=== PATIENT | female | born 1955 | race Caucasian/White ===

== ENCOUNTER 2016-07-01 16:06 | Emergency (ER) | payer OTHER ==
[~2016-07-01] VITALS: Ht 160 cm; Wt 86.8 kg
[~2016-07-01 16:06] MED LIST: ANTIVERT25 MG PO; NAPROSYN500 MG PO; VICODIN 5-3001 EACH PO
[2016-07-01] MEDS ORDERED: DICLOFENAC SOD100 MG PO (16:30)
[2016-07-01 17:35] LABS: ADD MIUA? YES; BILIRUBIN NEGATIVE; BLOOD SMALL; COLOR YELLOW ((YELLOW)); GLUCOSE (STRIP) NEGATIVE; KETONES 5; LEUKOCYTES TRACE; NITRITE NEGATIVE; PROTEIN (STRIP) NEGATIVE; SPECIFIC GRAVITY 1.015 (1.000-1.030); UROBILINOGEN 0.2 MG/DL (0.2-1.0)
[2016-07-01 17:40] VITALS: BP 131/96
[2016-07-01 17:50] LABS: BACTERIA NONE SEEN /HPF; EPITHELIAL CELLS RARE /HPF; MUCUS TRACE /LPF; RED BLOOD CELLS NONE SEEN /HPF (0-5); UCUL ADDED? NO; WHITE BLOOD CELLS 0-5 /HPF (0-5)
[2016-07-01 18:25] LABS: HEMATOCRIT 36.8 % (36.0-46.0); MCH 29.3 PG (29.0-34.0); MCHC 31.5 G/DL (30.0-36.0); MCV 92.9 FL (83-99); PLATELET COUNT 255 K/uL (156-360); RBC DIS.WIDTH-CV 13.9 % (11.8-14.6); RBC DIS.WIDTH-SD 47.6 % (39-53); RED BLOOD COUNT 3.96 M/uL (3.80-5.20); WHITE BLOOD COUNT 7.3 K/uL (4.1-10.2)
[2016-07-01 18:33] LABS: CHLORIDE 107 mEq/L (99-109); POTASSIUM 3.9 mEq/L (3.7-5.4); SODIUM 139 mEq/L (136-147)
[2016-07-01 18:34] LABS: GLUCOSE 100 mg/dL (70-99)
[2016-07-01 18:36] LABS: ANION GAP 9 MEQ/L (2-14)
[2016-07-01 18:38] LABS: GFR ESTIMATE (CALCULATED) > 59 mL/min/
[2016-07-01 18:39] LABS: UREA NITROGEN (BUN) 17 mg/dL (9-23)
[2016-07-01] MEDS ORDERED: VALIUM5 MG PO (18:56)
[2016-07-01] MEDS ORDERED: TRAMADOL HCL50 MG PO (18:56)
== END 2016-07-01 19:26 | disposition home or self-care (01) ==
LOC: EME 16:06
PROVIDERS: Physician Assistant
DX: S20.91XA Abrasion of unspecified parts of thorax, initial encounter (principal); M62.830 Muscle spasm of back; W08.XXXA Fall from other furniture, initial encounter; Y93.89 Activity, other specified; Y92.001 Dining room of unspecified non-institutional (private) residence as the place of occurrence of the external cause
CPT/HCPCS: 80048; 81003; 85027; 99281; 99284; J3010

== ENCOUNTER 2016-12-15 21:12 | Emergency (ER) | payer OTHER ==
[~2016-12-15] VITALS: Ht 160 cm; Wt 85.9 kg
[~2016-12-15 21:12] MED LIST changes: +DICLOFENAC SOD100 MG PO; +TRAMADOL HCL50 MG PO; +VALIUM5 MG PO
[2016-12-15 23:37] VITALS: BP 136/94
== END 2016-12-15 23:37 | disposition home or self-care (01) ==
LOC: RME 21:12 → EME 21:12 → RME 23:37
DX: S80.861A Insect bite (nonvenomous), right lower leg, initial encounter (principal); W57.XXXA Bitten or stung by nonvenomous insect and other nonvenomous arthropods, initial encounter
CPT/HCPCS: 99281; 99282

== ENCOUNTER 2017-08-13 16:56 | Observation (INO) | payer OTHER ==
[~2017-08-13] VITALS: Ht 160 cm; Wt 86.3 kg
[2017-08-13 18:22] LABS: PTT 28.6 SEC (25-37)
[2017-08-13 18:27] LABS: ALBUMIN 4.1 g/dL (3.2-4.8); CHLORIDE 108 mEq/L (99-109); POTASSIUM 3.8 mEq/L (3.7-5.4); SODIUM 140 mEq/L (136-147)
[2017-08-13 18:29] LABS: GLUCOSE 121 mg/dL (70-99); TOTAL PROTEIN 7.1 g/dL (6.4-8.3)
[2017-08-13 18:31] LABS: TOTAL BILIRUBIN 0.4 mg/dL (0.0-1.0)
[2017-08-13 18:33] LABS: ALKALINE PHOSPHATASE 132 IU/L (3-129); CREATININE 0.9 mg/dL (0.6-1.3); GFR ESTIMATE (CALCULATED) > 59 mL/min/
[2017-08-13 18:34] LABS: UREA NITROGEN (BUN) 16 mg/dL (9-23)
[2017-08-13 18:35] LABS: AST (GOT) 40 IU/L (2-34)
[2017-08-13 18:36] LABS: ALT (GPT) 81 IU/L (3-49); CREATINE KINASE 88 IU/L (1-294)
[2017-08-13 18:45] LABS: TROP-I INTERPRETATION NEGATIVE; TROPONIN-I < 0.01 ng/mL (0.0-0.30)
[2017-08-13 18:58] LABS: HEMATOCRIT 37.2 % (36.0-46.0); HEMOGLOBIN 12.5 G/DL (11.9-15.5); MCH 30.2 PG (29.0-34.0); MCHC 33.6 G/DL (30.0-36.0); MCV 89.9 FL (83-99); PLATELET COUNT 238 K/uL (156-360); RBC DIS.WIDTH-CV 13.2 % (11.8-14.6); RBC DIS.WIDTH-SD 43.5 % (39-53); RED BLOOD COUNT 4.14 M/uL (3.80-5.20); WHITE BLOOD COUNT 8.9 K/uL (4.1-10.2)
[2017-08-13 20:17] LABS: APPEARANCE CLEAR ((CLEAR)); BILIRUBIN NEGATIVE; BLOOD SMALL; COLOR YELLOW ((YELLOW)); GLUCOSE (STRIP) NEGATIVE; KETONES 5; LEUKOCYTES TRACE; NITRITE NEGATIVE; PROTEIN (STRIP) NEGATIVE; SPECIFIC GRAVITY 1.011 (1.000-1.030); UROBILINOGEN 0.2 MG/DL (0.2-1.0)
[2017-08-13 20:47] LABS: BACTERIA NONE SEEN /HPF; EPITHELIAL CELLS RARE /HPF; MUCUS TRACE /LPF; RED BLOOD CELLS 0-5 /HPF (0-5); UCUL ADDED? NO; WHITE BLOOD CELLS 0-5 /HPF (0-5)
[2017-08-13] MEDS ORDERED: CBD PO (21:05)
[2017-08-13] MEDS ORDERED: EXCEDRIN MIGRA1 EAC3 PO (21:05)
[2017-08-13 23:00] LABS: AMPHETAMINE NEGATIVE (500 ng/mL); BARBITURATES NEGATIVE (200 ng/mL); BENZODIAZEPINES PRESUMPTIVE POSITIVE (150 ng/mL); COCAINE NEGATIVE (150 ng/mL); METHADONE NEGATIVE (200 ng/mL); METHAMPHETAMINE NEGATIVE (500 ng/mL); OPIATES (MORPHINE) NEGATIVE (100 ng/mL); OXYCODONE NEGATIVE (100 ng/mL); PHENCYCLIDINE NEGATIVE (25 ng/mL); THC CANNABINOIDS NEGATIVE (50 ng/mL); TRICYCLIC ANTIDEPRESSANTS NEGATIVE (300 ng/mL)
[2017-08-13 23:01] LABS: BUPRENORPHINE NEGATIVE (10 ng/mL); PROPOXYPHENE NEGATIVE (300 ng/mL)
[2017-08-13 23:27] LABS: HDL CHOLESTEROL 93 MG/DL (Desirable>=50); LDL CHOLESTEROL 124 mg/dL (Desirable<100); NON-HDL CHOLESTEROL 135 mg/dL (Desirable<160); TOTAL CHOLESTEROL 228 mg/dL (Desirable<200); TRIGLYCERIDES 55 MG/DL (Normal: <150)
[2017-08-13 23:28] LABS: SERUM ETHYL ALCOHOL < 10 mg/dL
[2017-08-13 23:39] LABS: BENZODIAZEPINES, URINE SCREEN Negative (200 ng/mL)
[2017-08-14 00:21] VITALS: BP 95/53
[2017-08-14 02:48] VITALS: BP 101/56
[2017-08-14 09:39] VITALS: BP 144/78
[2017-08-14] MEDS ORDERED: LORAZEPAM0.5 MG PO (10:57)
[2017-08-14] MEDS ORDERED: ATORVASTATIN CA80 MG PO (10:57)
[2017-08-14] MEDS ORDERED: ANTIVERT25 MG PO (10:57)
[2017-08-14 12:13] VITALS: BP 138/71
[2017-08-15 11:47] LABS: HEPATITIS B SURFACE ANTIGEN Nonreactive; HEPATITIS C ANTIBODY Nonreactive
[2017-08-15 11:49] LABS: ANTI-HEPATITIS A VIRUS (IGM) Nonreactive; ANTI-HEPATITIS B CORE (IGM) Nonreactive
[2017-08-16 10:19] LABS: HEMOGLOBIN A1c (GLYCOHEMOGLOB) 5.3 % (Below 5.7)
[2017-08-17 15:00] LABS: ANTI-SMOOTH MUSCLE (Actin)+ <20 U (<20)
[2017-08-17 22:59] LABS: MITOCHONDRIAL (M2) ANTIBODIES+ <=20.0 U (<=20.0)
== END 2017-08-14 14:43 | disposition home or self-care (01) ==
LOC: EME 16:56 → EDOF 21:56 → ENRESERV 21:57 → 4SOUTH 08-14 00:07
PROVIDERS: Internal Medicine; Physician Assistant; Physician Assistant Medical
DX: R42 Dizziness and giddiness (principal); R74.0 Nonspecific elevation of levels of transaminase and lactic acid dehydrogenase [LDH]; F41.1 Generalized anxiety disorder; M19.90 Unspecified osteoarthritis, unspecified site; Z87.891 Personal history of nicotine dependence; Z82.3 Family history of stroke; Z88.2 Allergy status to sulfonamides
CPT/HCPCS: 70450; 70551; 76705; 80053; 80061; 80074; 81003; 82550; 83036; 83516 90; 84443; 84484; 84999; 85027; 85610; 85730; 86038; 86256 90; 93005; 99281; 99285; G0378; G0480; J2765; J7030